=== PATIENT | female | born 1980 | race African-American/Black ===

== ENCOUNTER 2022-04-19 10:42 | Emergency (ER) | payer SELFPAY ==
[~2022-04-19] VITALS: Ht 157.5 cm; Wt 62.3 kg
[2022-04-19 11:03] VITALS: BP 103/67
[2022-04-19 11:34] LABS: CLARITY,URINE CLEAR (Clear); COLOR,URINE YELLOW (Yellow); GLUCOSE, URINE NEGATIVE (Neg); KETONES,URINE NEGATIVE (Neg); LEUKOCYTE ESTERASE ,URINE NEGATIVE (Neg); NITRITES, URINE NEGATIVE (Neg); OCCULT BLOOD,URINE NEGATIVE (Neg); PROTEIN,URINE NEGATIVE (Neg); UROBILINOGEN,URINE 0.2 E.U/dL (0.2-1.0)
[2022-04-19 11:38] LABS: UA COLLECTION TYPE CLN CATCH MIDSTREAM
[2022-04-19 11:39] LABS: URINE HCG POSITIVE (NEG)
== END 2022-04-19 17:07 | disposition left against medical advice (07) ==
LOC: ER 10:44
DX: O26.891 Other specified pregnancy related conditions, first trimester (principal); R10.9 Unspecified abdominal pain; Z53.21 Procedure and treatment not carried out due to patient leaving prior to being seen by health care provider; Z3A.01 Less than 8 weeks gestation of pregnancy
CPT/HCPCS: 81003; 81025

== ENCOUNTER 2022-04-22 11:49 | Emergency (ER) | payer MEDICAID ==
[~2022-04-22] VITALS: Ht 157.5 cm; Wt 62.0 kg
[2022-04-22 12:19] LABS: URINE HCG POSITIVE (NEG)
[2022-04-22 12:21] LABS: COLOR,URINE YELLOW (Yellow); GLUCOSE, URINE NEGATIVE (Neg); KETONES,URINE NEGATIVE (Neg); LEUKOCYTE ESTERASE ,URINE NEGATIVE (Neg); NITRITES, URINE NEGATIVE (Neg); OCCULT BLOOD,URINE NEGATIVE (Neg); PROTEIN,URINE NEGATIVE (Neg); UROBILINOGEN,URINE 0.2 E.U/dL (0.2-1.0)
[2022-04-22 12:28] LABS: CLARITY,URINE SLIGHTLY CLOUDY (Clear); UA COLLECTION TYPE CLN CATCH MIDSTREAM
[2022-04-22 12:29] LABS: BACTERIA,URINE 2+ /HPF (Neg); RBC,URINE NONE SEEN /HPF (0-2); SQUAMOUS EPITHELIAL CELL,UR MANY /LPF (FEW); WBC,URINE 0-4 /HPF (0-4)
[2022-04-22 12:30] LABS: MUCUS STRANDS FEW /LPF (Neg)
[2022-04-22 12:34] VITALS: BP 109/75
[2022-04-22 12:37] LABS: BASOPHILS % (AUTO) 0.7 % (0-1); EOSINOPHILS # (AUTO) 0.1 X10'3 (0-0.9); EOSINOPHILS % (AUTO) 2.1 % (0-6); HEMATOCRIT 36.7 % (35.0-45.0); HEMOGLOBIN 12.4 g/dl (12.0-16.0); LYMPHOCYTES # (AUTO) 2.5 X10'3 (1.1-4.8); LYMPHOCYTES % (AUTO) 38.3 % (21-51); MEAN CORPUSCULAR HEMOGLOBIN 30.6 PG (27.0-31.0); MEAN CORPUSCULAR HGB CONC 33.8 g/dL (33.0-36.5); MEAN CORPUSCULAR VOLUME 90.6 FL (78-98); MEAN PLATELET VOLUME 7.2 FL (7.4-10.4); MONOCYTES # (AUTO) 0.6 X10'3 (0-0.9); NEUTROPHILS # (AUTO) 3.3 X10'3 (1.8-7.7); NEUTROPHILS % (AUTO) 49.9 % (42-75); PLATELET COUNT 202 X10'3 (140-440); RED BLOOD COUNT 4.05 X10'6 (4.20-5.60); RED CELL DISTRIBUTION WIDTH 14.2 % (11.5-14.5); WHITE BLOOD COUNT 6.7 X10'3 (4.5-11.0)
[2022-04-22 12:51] LABS: ALANINE AMINOTRANSFERASE 14 U/L (12-78); ALBUMIN 3.2 G/DL (3.4-5.0); ALKALINE PHOSPHATASE 47 IU/L (46-116); ANION GAP 9 (8-16); ASPARTATE AMINO TRANSFERASE 10 U/L (10-37); BILIRUBIN,TOTAL 0.5 MG/DL (0.1-1.0); BLOOD UREA NITROGEN 4 MG/DL (7-18); BUN/CREATININE RATIO 6.6 (6.6-38.0); CALCIUM 8.1 MG/DL (8.5-10.1); CHLORIDE 103 MMOL/L (99-107); CREATININE 0.61 MG/DL (0.40-0.90); GLUCOSE 109 MG/DL (70-104); LIPASE 110 U/L (73-393); POTASSIUM 3.7 MMOL/L (3.5-5.1); SODIUM 136 MMOL/L (135-145); TOTAL CARBON DIOXIDE 23.7 MMOL/L (24-32); TOTAL PROTEIN 6.5 G/DL (6.4-8.2); eGFR > 90 ML/MIN
== END 2022-04-22 15:35 | disposition home or self-care (01) ==
LOC: ER 11:50
DX: O23.41 Unspecified infection of urinary tract in pregnancy, first trimester (principal); R10.30 Lower abdominal pain, unspecified; J45.909 Unspecified asthma, uncomplicated; Z3A.01 Less than 8 weeks gestation of pregnancy; Z88.8 Allergy status to other drugs, medicaments and biological substances
CPT/HCPCS: 36415; 76801; 80053; 81001; 81025; 83690; 85025; 99284

== ENCOUNTER 2025-03-17 15:39 | Emergency (ER) | payer MEDICAID ==
[~2025-03-17] VITALS: Ht 157.5 cm; Wt 77.5 kg
[2025-03-17 15:47] VITALS: TEMP 98.4
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
[2025-03-17] MEDS ORDERED: AMOX-117 PO (17:29)
[2025-03-17] MEDS: amox tr/potassium clavulanate 875/125mg TAB PO ONE (17:43)
[2025-03-17] MEDS: LIDOcaine 1% 30ml preserv. free vial IJ ONE (17:44)
[2025-03-17] MEDS: TETanus/Pertussis (Acell)/Diphther VAC/PF (Tdap-Adult) 0.5ml syringe IMVAC ONE (17:44)
[2025-03-17 18:54] VITALS: BP 120/84; PULSE 90; RESP 16; O2SAT 98
== END 2025-03-17 18:56 | disposition home or self-care (01) ==
LOC: ER 15:40
DX: S61.216A Laceration without foreign body of right little finger without damage to nail, initial encounter (principal); S00.83XA Contusion of other part of head, initial encounter; J45.909 Unspecified asthma, uncomplicated; Z91.018 Allergy to other foods; Y04.1XXA Assault by human bite, initial encounter; Y93.89 Activity, other specified; Y92.89 Other specified places as the place of occurrence of the external cause; Y99.8 Other external cause status
CPT/HCPCS: 12001; 90471; 90715; 99283; A6222; J7030; A6449